=== PATIENT | male | born 1980 ===

== ENCOUNTER 2024-01-02 11:09 | Outpatient (CLI) | payer OTHER, SELFPAY ==
--- NOTE | ~2024-01-02 | MR_ITS ---
MRI of the right shoulder Technique: Axial proton-density fat-sat images, coronal proton density fat-sat and T2 fat-sat images, and sagittal T1-weighted and T2 fat-sat images were acquired. Clinical History: Bicipital tendinitis Findings: There is moderate to advanced AC joint degenerative change, subpleural cystic change of the distal clavicle with mild reactive marrow edema and minimal fluid in the joint space. Small subacrom ial spur present. Cortical clavicular, coracoacromial, and coracohumeral ligaments are intact. Supraspinatus and infraspinatus tendons are intact, with minimal tendinosis but no partial or full-th ickness tear. Subscapularis tendon is intact with minimal tendinosis. Tendon of the long head of the biceps is intact. No definite labral tear seen. Inferior glenohumeral ligament is intact. No degenerative change or effusion of the glenohumeral join t. No fluid distention of the subacromial/subdeltoid bursa. No muscle atrophy or edema. Impression: Moderate to advanced AC joint degenerative change. Minimal rotator cuff tendinosis, as above. Reviewed, dictated and finalized at location . Impression: Moderate to advanced AC joint degenerative change. Minimal rotator cuff tendinosis, as above.
== END 2024-01-02 11:10 ==
DX: M75.21 Bicipital tendinitis, right shoulder (principal); M19.011 Primary osteoarthritis, right shoulder
CPT/HCPCS: 73221